=== PATIENT | male | born 1980 | race Caucasian/White ===

== ENCOUNTER 2023-08-23 15:13 | Outpatient (AMB) | payer BC, SELFPAY ==
[2023-08-23 15:50] VITALS: BP 148/70; PULSE 95; TEMP 36.6; O2SAT 95
--- NOTE | 2023-08-23 15:50 | AM.OFFWIN_ITS ---
Intake Vital Signs 08/23/23 15:50 Weight 324 lb 3 oz BP 148/70 H Blood Pressure Location Rt brachial Position Sitting Pulse 95 Pulse Source Pulse Oximeter Temp 98 F Temp Source Oral Pulse Oximetry (%) 95 Oxygen Delivery Method Room Air Intake Visit Reasons: EST/cough 2 months (lobby masked) Intake Note: Pt is here today for a cough that occurred for over 2 months Patient Tobacco Use Status: Never used Tobacco Allergies penicillin V Allergy (Unknown, Verified 08/23/23 15:52) Abdominal Pain Medication List - Last Reconciled 08/23/23 by Dory Lantigua NP azithromycin 500 mg PO DAILY 3 days benzonatate 200 mg (2 x 100 mg) PO TID Do you need a note to return to daycare/school/sports/work: No HPI HPI Comments History of Present Illness Details 43 y/o male presents to walk in clinic w ith c/o chronic persistent cough. Reports that the cough is on/off and productive in nature. Admits to smoking cigarettes, 1 PPD. Tried to quit with Chantix but failed. Denies fevers, chills, nausea or vomiting. PFSH Social History Patient Tobacco Use Status: Never used Tobacco Review of Systems Const All systems reviewed & are unremarkable except as noted in HPI and below Physical Exam Vital Signs: Last Vital Signs Temp 98 F 08/23/23 15:50 Pulse 95 08/23/23 15:50 BP 148/70 H 08/23/23 15:50 Pulse Ox 95 08/23/23 15:50 Oxygen Delivery Method Room Air 08/23/23 15:50 Const General: no acute distress HEENT Head: Yes normocephalic Ears: external ears normal and TM's normal bilaterally General nose exam: Normal external nose present and Normal nasal mucous membranes and turbinates present Face and sinus: Yes sinuses nontender Mouth: Abnormal oral and palatal mucosa present erythematous; not edematous, no white patches and nodules Throat: Yes posterior oropharynx normal Resp Effort & Inspection: normal respiratory effort Auscultation: clear to auscultation bilaterally Cardio Rate: regular rate Rhythm: regular rhythm Assessment & Plan Assessment & Plan (1) Cough in adult: Code(s): R05.9 - Cough, unspecified Plan: - Zpack - Advise to stop smoking - OTC cough medicine. Plan - Zpack - Advise to stop smoking - OTC cough medicine. Medications: New benzonatate 200 mg (2 x 100 mg) PO TID 60 caps 0RF R05.9 - Cough, unspecified azithromycin 500 mg PO DAILY 3 days 3 tabs 0RF R05.9 - Cough, unspecified dextromethorphan-guaifenesin 5-100 mg/5 mL (Robitussin Honey Max DM) 10 mL PO Q6-8H PRN 237 mL 0RF cough R05.9 - Cough, unspecified Coding Level of Care Code Est Pt Level 3 (97147) Diagnoses Cough in adult R05.9 Time Spent (min) 15
== END 2023-08-23 16:17 | disposition home or self-care (01) ==
PROVIDERS: Visit Provider Nurse Practitioner Family
DX: R05.9 Cough, unspecified (principal)
CPT/HCPCS: 99213

== ENCOUNTER 2023-10-03 15:27 | Outpatient (AMB) | payer BC, SELFPAY ==
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
[2023-10-03 15:38] VITALS: BP 120/76; PULSE 89; O2SAT 96; BMI 46.1
== END 2023-10-03 16:43 | disposition home or self-care (01) ==
PROVIDERS: Visit Provider Nurse Practitioner Primary Care
DX: M25.561 Pain in right knee (principal); J45.909 Unspecified asthma, uncomplicated; Z72.0 Tobacco use
CPT/HCPCS: 99213

== ENCOUNTER 2023-10-06 07:05 | Outpatient (REF) | payer BC, SELFPAY ==
[2023-10-06 11:47] LABS: MANUAL DIFF FLAG NO
[2023-10-06 11:57] LABS: Appearance Urine Cloudy; Color Urine Yellow; Glucose Urine UA Negative (Negative); Leukocyte Esterase Urine Negative (Negative); Nitrite Urine Negative (Negative); Specific Gravity - Urine >= 1.030 (1.005-1.025); Urine Blood Negative (Negative); Urine Ketones Negative (Negative); Urine Protein Negative (Neg-Trace)
[2023-10-06 11:59] LABS: Basophils Absolute Auto 0.1 X10*3/uL (0.0-0.2); Basophils Percent Auto 0.7 % (0-2); Eosinophils Absolute Auto 0.3 X10*3/uL (0.0-0.4); Eosinophils Percent Auto 4.5 % (0-4); Hematocrit 29.8 % (42.0-52.0); Hemoglobin 8.3 g/dl (14.0-18.0); Imm Gran Abs Auto 0.02 X10*3/uL (0.00-0.03); Imm Gran Pct Auto 0.3 % (0.0-0.4); Lymphocytes Percent Auto 26.6 % (20-40); Mean Corpuscular HGB Conc 27.9 g/dl (31.0-36.0); Mean Corpuscular Hemoglobin 20.9 pg (27.0-33.0); Mean Corpuscular Volume 74.9 fL (80.0-98.0); Mean Platelet Volume 11.2 fL (9.4-12.4); Monocytes Absolute Auto 0.5 X10*3/uL (0.1-1.2); Monocytes Percent Auto 6.9 % (2-11); Neutrophils Absolute Auto 4.6 x10*3/uL (2.0-8.3); Platelet Count 355 X10*3/uL (160-400); Red Blood Count 3.98 X10*6/uL (4.60-5.80); Red Cell Distribution Width 17.6 % (11.0-16.0); White Blood Count 7.6 X10*3/uL (4.8-10.8)
[2023-10-06 12:16] LABS: Estimated Average Glucose 111 mg/dL; Hemoglobin A1c % 5.5 % (<6.0)
[2023-10-06 12:33] LABS: Alanine Aminotransferase 20 U/L (0-40); Albumin Level 3.8 g/dL (3.5-5.0); Alkaline Phosphatase 66 U/L (39-117); Anion Gap 11 (12-20); Aspartate Amino Transferase 19 U/L (5-37); Bilirubin Total 0.1 mg/dL (0.0-1.0); Blood Urea Nitrogen 12 mg/dL (9-16); Calcium 9.3 mg/dL (8.4-10.2); Carbon Dioxide 24 mmol/L (22-29); Chloride 111 mmol/L (96-108); Cholesterol 165 mg/dL (<200); Estimated Glomerular Filt Rate > 60; Glucose Random 96 mg/dL (60-115); HDL Cholesterol 38 mg/dL (>40); LDL Cholesterol Calculated 115 mg/dL (<100); Potassium 4.3 mmol/L (3.3-5.1); Sodium 142 mmol/L (135-145); Total Protein 7.2 g/dL (6.5-8.0); Triglycerides 61 mg/dL (<150)
[2023-10-06 12:36] LABS: TSH reflex Free T4 1.79 uIU/mL (0.32-4.0)
[2023-10-06 12:37] LABS: PSA,Total (Free>4and<10) 0.44 ng/mL (0.00-4.00)
[2023-10-10 12:18] LABS: Vitamin D 25-OH, D2 <4 ng/mL; Vitamin D 25-OH, D3 20 ng/mL; Vitamin D 25-OH, Total 20 ng/mL (30-100)
[2023-10-10 14:38] LABS: Vitamin B6 3.6 ng/mL (2.1-21.7)
== END 2023-10-06 07:06 | disposition home or self-care (01) ==
LOC: HO.HMGCLDS 07:05
PROVIDERS: PCP Nurse Practitioner Primary Care; Visit Provider Nurse Practitioner Primary Care
DX: Z12.5 Encounter for screening for malignant neoplasm of prostate (principal); Z13.6 Encounter for screening for cardiovascular disorders; Z13.0 Encounter for screening for diseases of the blood and blood-forming organs and certain disorders involving the immune mechanism; Z13.21 Encounter for screening for nutritional disorder; Z13.220 Encounter for screening for lipoid disorders; Z13.89 Encounter for screening for other disorder; Z13.29 Encounter for screening for other suspected endocrine disorder; Z91.89 Other specified personal risk factors, not elsewhere classified
CPT/HCPCS: 36415; 80053; 80061; 81003; 82306; 83036; 84153; 84207; 84443; 85025

== ENCOUNTER 2023-10-12 13:08 | Outpatient (REF) | payer BC, SELFPAY ==
[2023-10-12 17:20] LABS: Iron 97 mcg/dL (45-160); Percent Iron Saturation 27 % (15-50); Total Iron Binding Capacity 361 mcg/dL (228-428); Unsaturated Iron Binding 264 ug/dL
== END 2023-10-12 13:09 | disposition home or self-care (01) ==
LOC: HO.HMGCLDS 13:08
PROVIDERS: PCP Nurse Practitioner Primary Care; Visit Provider Nurse Practitioner Primary Care
DX: D64.9 Anemia, unspecified (principal)
CPT/HCPCS: 36415; 83540

== ENCOUNTER 2023-11-01 14:43 | Outpatient (AMB) | payer BC, SELFPAY ==
[2023-11-01 14:47] VITALS: BP 126/72; PULSE 55; O2SAT 97; BMI 46.4
--- NOTE | 2023-11-01 14:47 | MHC.PC.OV ---
Vital Signs 11/01/23 14:47 Height 5 ft 9 in Weight 314 lb 8 oz BMI 46.4 BP 126/72 Blood Pressure Location Rt brachial Position Sitting Pulse 55 Pulse Source Pulse Oximeter Pulse Oximetry (%) 97 Oxygen Delivery Method Room Air Intake Visit Reasons: Chantix and Lab F/U Intake Note: Pt is here to follow up for labs and to follow up Chantix Allergies penicillin V Allergy (Unknown, Verified 11/01/23 14:49) Anaphylaxis Tobacco use date assessed: 10/03/23 Dental Screening Dental Screen Date: 11/01/23 Did you have a dental visit in the last 12 months?: Yes Did you have a dental problem in the last 6 months where you did not have access to dental care?: No Was dental information given to patient?: Patient has dentist HPI HPI Comments History of Present Illness Details Patient is a 43-year-old male here for a follow-up. Patient was started on Varenicline 1 month prior to assist with smoking cessation. Patient also had labs drawn which demonstrated anemia. Patient was given GI referral due to anemia and chronic nicotine use. He was started on ferrous fumarate 325 mg and has been taking the medication as directed. Patient denies any side effects from the Chantix and states that he has cut down smoking cigarettes dramatically. He denies symptoms of chest pain, shortness a breath, dizziness, numbness, nausea, vomiting, diarrhea. Will prescribe more Chantix, will redraw CMP CBC today stat. PFSH Surgical History History of carpal tunnel surgery Status post right foot surgery Hx of right knee surgery Family History Father Substance use disorder Mother No problems noted. Paternal Grandfather Prostate cancer Social History Housing: House Patient Tobacco Use Status: Current everyday Tobacco user Tobacco use type: Cigarette Cigarettes Per Day: 10 e-Cigarette/Vaping Use: Never Used Current occupational status: employed Cognitive needs: No Hearing needs: No Vision needs: Yes Questionnaire PHQ-9 Over the last 2 weeks, how often have you been bothered by any of the following problems? 1. Little interest or pleasure in doing things: several days 2. Feeling down, depressed, or hopeless: not at all 3. Trouble falling or staying asleep, or sleeping too much: not at all 4. Feeling tired or having little energy: not at all 5. Poor appetite or overeating: not at all 6. Feeling bad about yourself - or that you are a failure or have let yourself or your family down: not at all 7. Trouble concentrating on things, such as reading the newspaper or watching television: not at all 8. Moving or speaking so slowly that other people could have noticed. Or the opposite - being so fidgety or restless that you have been moving around a lot more than usual: not at all 9. Thoughts that you would be better off or of hurting yourself in some way: not at all Total score: 1 Source: Developed by Drs. Sd Nguyen, Kaila Tinajero, Beto Mcgregor and colleagues, with an educational nancy from [employer]. Thrive Questionnaire Date Thrive assessed: 11/01/23 I am a: Patient What is your living situation today?: I have a steady place to live Within the past 12 months, did the food you bought not last and you didn't have the money to get more?: Never true Within the past 12 months, did you worry whether your food would run out before you got money to buy more?: Never true Do you have trouble paying for medicines?: No Do you have trouble getting transportation to medical appointments?: No Do you have trouble paying your heating and electricity bill?: No Do you have trouble taking care of your child, family member or friend?: No Do you have trouble with day-to-day activities such as bathing, preparing meals, shopping, managing finances, etc.?: No Are you currently unemployed and looking for a job?: No Are you interested in more education?: No THRIVE Score: 0 AUDIT C Alcohol Use Questionnaire (AUDIT-C) 1. How often do you have a drink containing alcohol?: Monthly or less 2. How many drinks containing alcohol do you have on a typical day when you are drinking?: 3 or 4 3. How often do you have six or more drinks on one occasion?: Less than monthly Total Score: 3 SANAZ-7 AMB Questionnaire SANAZ-7 Date SANAZ - 7 assessed: 11/01/23 Feeling nervous, anxious, or on edge: 0 = Not at all Not being able to stop or control worryin = Not at all Worrying too much about different things: 0 = Not at all Trouble relaxin = Not at all Being so restless that it is hard to sit still: 0 = Not at all Becoming easily annoyed or irritable: 0 = Not at all Feeling afraid as if something awful might happen: 0 = Not at all Total SANAZ-7 score (0-4 normal; 5-9 mild; 10-14 moderate; 15-21 severe): 0 Source: Developed by Drs. Sd Nguyen, Kaila Tinajero, Beot Mcgregor and colleagues, with an educational nancy from [employer]. Review of Systems Const All systems reviewed & are unremarkable except as noted in HPI and below Psych Denies homicidal ideation and Denies suicidal ideation Physical exam (Primary Care) Care Plan Goal for BP management: Vital signs reviewed stable. BMI result Body Mass Index 46.4 Tobacco/Smoking Status: Tobacco use Status Tobacco use date assessed 10/03/23 10/03/23 15:45 Patient Tobacco Use Status Current everyday Tobacco 10/03/23 15:48 Tobacco use type Cigarette 10/03/23 15:45 e-Cigarette/Vaping Use Never Used 10/03/23 15:45 Const Other: Appearance: Alert.? Oriented X3.? No acute distress.? Head: Normocephalic, atraumatic, no step-offs or deformities Neck: Normal inspection.? Neck supple.? CVS: Normal heart rate and rhythm.? Pulses normal.? Respiratory: No respiratory distress.? Breath sounds normal.? Abdomen: Soft and nontender.? Skin: Normal for ethnicity. Neuro: Oriented X 3.? No motor deficit.? No sensory deficit. CN 2-12 intact Results Reviewed Results Reviewed: WBC 7.6 4.8-10.8 X10*3/uL RBC 3.98 L 4.60-5.80 X10*6/uL HGB 8.3 L 14.0-18.0 g/dl HCT 29.8 L 42.0-52.0 % MCV 74.9 L 80.0-98.0 fL MCH 20.9 L 27.0-33.0 pg MCHC 27.9 L 31.0-36.0 g/dl RDW 17.6 H 11.0-16.0 % PLT 355 160-400 X10*3/uL MPV 11.2 9.4-12.4 fL Neut Pct Auto 61.0 45-73 % ImGran Pct Auto 0.3 0.0-0.4 % Lymp Pct Auto 26.6 20-40 % [place] Pct Auto 6.9 2-11 % Eos Pct Auto 4.5 H 0-4 % Baso Pct Auto 0.7 0-2 % NRBC Pct Auto 0.0 0.0-0.2 /100WBC ANC Neut Abs # 4.6 2.0-8.3 x10*3/uL ImGran Abs Auto 0.02 0.00-0.03 X10*3/uL Lymph Abs Auto 2.0 1.2-4.9 X10*3/uL [place] Abs Auto 0.5 0.1-1.2 X10*3/uL Eos Abs Auto 0.3 0.0-0.4 X10*3/uL Baso Abs Auto 0.1 0.0-0.2 X10*3/uL NRBC Abs Auto 0.000 0.0-0.012 X10*3/uL Assessment and Plan Assessment & Plan (1) Anemia: Comment: Patient will have CBC and CMP redrawn today. Patient has been taking ferrous fumarate 325 daily. Patient has referral to GI. Code(s): D64.9 - Anemia, unspecified Qualifiers: Anemia type: unspecified type Qualified Code(s): D64.9 - Anemia, unspecified (2) Smoking trying to quit: Comment: Patient is currently taking Chantix with good effect. Patient will continue taking. Code(s): Z72.0 - Tobacco use Plan: Take your medications as prescribed. If you were prescribed antibiotics today, it is important that you take your medication to their entirety, do not skip any doses, do not finish them early. Follow-up with your primary care provider this week. Return to the emergency department with new or worsening symptoms. Such as fevers, chills, chest pain, shortness of breath, nausea, vomiting, dizziness, headache, vision changes, lethargy In case of emergency call 911 Plan Follow-up in 1 months with physical exam Orders: Orders Comprehensive Met. Panel Today Z91.89 - Other specified personal risk factors, not elsewhere classified UA CC w/rflx Micro + Cult Today D64.9 - Anemia, unspecified Complete Blood Count Auto Diff Today D64.9 - Anemia, unspecified Medications: New varenicline 1 mg PO BID 60 tabs 0RF Coding Level of Care Code Est Pt Level 3 (58965) Diagnoses Anemia, unspecified type D64.9 Anemia type: unspecified type Smoking trying to quit Z72.0 Time Spent (min) 20
== END 2023-11-01 16:27 | disposition home or self-care (01) ==
PROVIDERS: PCP Nurse Practitioner Primary Care; Visit Provider Nurse Practitioner Primary Care
DX: D64.9 Anemia, unspecified (principal); Z72.0 Tobacco use
CPT/HCPCS: 99213

== ENCOUNTER 2023-11-01 15:03 | Outpatient (REF) | payer BC, SELFPAY ==
[2023-11-01 16:25] LABS: MANUAL DIFF FLAG NO
[2023-11-01 16:38] LABS: Alanine Aminotransferase 24 U/L (0-40); Albumin Level 4.1 g/dL (3.5-5.0); Alkaline Phosphatase 66 U/L (39-117); Anion Gap 11 (12-20); Aspartate Amino Transferase 18 U/L (5-37); Bilirubin Total 0.1 mg/dL (0.0-1.0); Blood Urea Nitrogen 16 mg/dL (9-16); Calcium 9.5 mg/dL (8.4-10.2); Carbon Dioxide 26 mmol/L (22-29); Chloride 108 mmol/L (96-108); Estimated Glomerular Filt Rate > 60; Glucose Random 91 mg/dL (60-115); Potassium 4.2 mmol/L (3.3-5.1); Sodium 141 mmol/L (135-145); Total Protein 7.5 g/dL (6.5-8.0)
[2023-11-01 16:49] LABS: Basophils Absolute Auto 0.1 X10*3/uL (0.0-0.2); Basophils Percent Auto 0.8 % (0-2); Eosinophils Absolute Auto 0.3 X10*3/uL (0.0-0.4); Eosinophils Percent Auto 3.3 % (0-4); Hematocrit 32.8 % (42.0-52.0); Hemoglobin 9.6 g/dl (14.0-18.0); Imm Gran Abs Auto 0.03 X10*3/uL (0.00-0.03); Imm Gran Pct Auto 0.3 % (0.0-0.4); Lymphocytes Absolute Auto 2.2 X10*3/uL (1.2-4.9); Lymphocytes Percent Auto 23.3 % (20-40); Mean Corpuscular HGB Conc 29.3 g/dl (31.0-36.0); Mean Corpuscular Hemoglobin 22.3 pg (27.0-33.0); Mean Corpuscular Volume 76.3 fL (80.0-98.0); Mean Platelet Volume 11.2 fL (9.4-12.4); Monocytes Absolute Auto 0.7 X10*3/uL (0.1-1.2); Monocytes Percent Auto 7.2 % (2-11); Neutrophils Percent Auto 65.1 % (45-73); Platelet Count 314 X10*3/uL (160-400); Red Cell Distribution Width 24.3 % (11.0-16.0); White Blood Count 9.3 X10*3/uL (4.8-10.8)
== END 2023-11-01 15:04 | disposition home or self-care (01) ==
LOC: HO.HMGCLDS 15:03
PROVIDERS: PCP Nurse Practitioner Primary Care; Visit Provider Nurse Practitioner Primary Care
DX: D64.9 Anemia, unspecified (principal); Z91.89 Other specified personal risk factors, not elsewhere classified
CPT/HCPCS: 36415; 80053; 85025

== ENCOUNTER 2023-11-26 15:08 | Outpatient (AMB) | payer BC, SELFPAY ==
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
[2023-11-26 15:30] VITALS: BP 126/66; PULSE 70; O2SAT 95; BMI 46.2
== END 2023-11-26 16:06 | disposition home or self-care (01) ==
LOC: HO.HMGC 15:08
PROVIDERS: PCP Nurse Practitioner Primary Care; Visit Provider Nurse Practitioner Primary Care
DX: Z00.00 Encounter for general adult medical examination without abnormal findings (principal); D64.9 Anemia, unspecified; Z72.0 Tobacco use; J45.909 Unspecified asthma, uncomplicated; K21.9 Gastro-esophageal reflux disease without esophagitis; M25.561 Pain in right knee
CPT/HCPCS: 99396

== ENCOUNTER 2023-12-11 15:23 | Outpatient (AMB) | payer BC, SELFPAY ==
--- NOTE | 2023-12-11 15:26 | A.OFFVIS_ITS ---
Vital Signs 12/11/23 15:27 Height 5 ft 9 in Weight 313 lb 0.902 oz BMI 46.2 BP 128/70 Blood Pressure Location Lt brachial Position Sitting Pulse 70 Intake Visit Reasons: GERD, Anemia Intake Note: Aiden presents in the office as a new patient for GERD and Anemia. CC: He states that he takes omeprazole for the acid reflux - he said he is generally fine when he takes it but if he does not take it he will get acid reflux at night. He states that his bowels are fairly normal. Doctor Of Nursing Practice Required: No Allergies penicillin V Allergy (Unknown, Verified 12/11/23 15:29) Anaphylaxis HPI HPI GERD, Anemia: Details: 43 year old? male with past medical history of GERD, smoking, sleep apnea, anemia is here today for initial consultation.? Patient was sent to us by his PCP.? Patient was found to have anemia in the past few months. Last month patient was started on iron supplement and his H&H started to improve.? Patient denies any gastrointestinal symptoms in the past or at present. However patient does admit that he was having acid reflux was placed on omeprazole and is feeling well. Takes 20 mg omeprazole daily.? Denies any personal or family history of gastrointestinal disease, colon polyps, or CRC.? Denies history of difficulty with sedation or anesthesia in the past.? History of sleep apnea un able to use a CPAP..? Denies any history of cardiac, renal, pulmonary, or hepatic disease.?? No history of infectious? diseases like hepatitis A, B, C, HIV or tuberculosis.? Patient is not on any anticoagulation Laboratory Tests 04/05/19 10/06/23 10/12/23 11:08 07:17 13:10 RBC 4.70 3.98 L Hgb 14.2 8.3 L Hct 41.8 L 29.8 L MCV 89.0 74.9 L MCH 30.1 20.9 L Plt Count 224 355 MPV 11.2 Iron 97 TIBC 361 % Saturation 27 Unsat Iron Binding 264 Total Bilirubin AST ALT Alkaline Phosphatase 11/01/23 15:08 RBC 4.30 L Hgb 9.6 L Hct 32.8 L MCV 76.3 L MCH 22.3 L Plt Count 314 MPV 11.2 Iron TIBC % Saturation Unsat Iron Binding Total Bilirubin 0.1 AST 18 ALT 24 Alkaline Phosphatase 66 PFSH Surgical History History of carpal tunnel surgery Status post right foot surgery Hx of right knee surgery Family History Father Substance use disorder Mother No problems noted. Paternal Grandfather Prostate cancer Social History Housing: House Patient Tobacco Use Status: Current someday Tobacco user Tobacco use type: Cigarette Cigarettes Per Day: 10 e-Cigarette/Vaping Use: Never Used Current occupational status: employed Cognitive needs: No Hearing needs: No Vision needs: Yes Review of Systems Const Denies weight gain and Denies weight loss ENT Reports no additional complaints, Denies dysphagia and Denies odynophagia Card Reports no additional complaints Resp Reports no additional complaints GI Denies abdominal pain, Denies belching, Denies melena, Denies bloating, Denies change in bowel habits, Denies dysphagia, Denies excessive flatus, Denies dyspepsia, Denies heartburn, Denies diarrhea, Denies loose stools, Denies nausea, Denies odynophagia and Denies vomiting Reports no additional complaints Musc Reports no additional complaints Neuro Reports no additional complaints Psych Reports no additional complaints Endo Reports no additional complaints Physical Exam Vital Signs: Last Vital Signs Pulse 70 12/11/23 15:27 BP 128/70 12/11/23 15:27 BMI result Body Mass Index 46.2 Const General: healthy appearing and no acute distress Nutritional Appearance: obese Orientation/consciousness: patient oriented x3 Resp Effort & Inspection: normal respiratory effort, able to speak in complete sentences, no tracheal deviation and symmetric chest movement Auscultation: clear to auscultation bilaterally Cardio Rate: regular rate GI Inspection: Yes normal to inspection, No distended and Yes obesity Palpation (GI): Soft to palpation, not firm, nontender and No hepatosplenomegaly present Auscultation: normal bowel sounds General: Yes no CVA tenderness Back/Spine/Pelvis Back: no CVA tenderness Skin General skin exam: elasticity normal, turgor normal and dry skin Neuro General: patient oriented x3 Psych Appearance: grossly normal Mental Status: mental status grossly normal Assessment & Plan Assessment & Plan (1) GERD (gastroesophageal reflux disease): Code(s): K21.9 - Gastro-esophageal reflux disease without esophagitis Category: Medical Qualifiers: Esophagitis presence: esophagitis presence not specified Qualified Code(s): K21.9 - Gastro-esophageal reflux disease without esophagitis (2) Anemia: Code(s): D64.9 - Anemia, unspecified Category: Medical Qualifiers: Anemia type: unspecified type Qualified Code(s): D64.9 - Anemia, unspecified Plan Patient denies any GI, cardiac or respiratory symptoms.? Anemia in the past couple months. Patient denies any melena, hematochezia unintentional weight loss or ribbon like stools. Patient denies any dyspepsia, dysphagia or odynophagia. Denies any issues with anesthesia in the past.? History of sleep apnea unable to use a CPAP. No history infectious diseases in the past or present.? Not on any anticoagulation therapy.? No family or personal history of colon cancer or polyps.? Discussed at length the pre-procedure,? prep, diet & medications as well as what to expect prior, during and after the procedure.?? Stressed the importance of good bowel prep. ?Recommended the use of Vaseline or Calmoseptine OTC & baby wipes with bowel movements to promote comfort.? ?Patient verbalizes understanding and agrees to plan of care.? He was given the opp ortunity to ask questions and all questions answered.? We will see him after the procedure.? Orders: Referrals Hematology & Oncology Referral D64.9 - Anemia, unspecified Medications: New bisacodyl (Dulcolax (bisacodyl)) take 4 tabs at noon the day before your colonoscopy 20 mg (4 x 5 mg) PO ONCE 1 day 4 tabs 0RF Z12.11 - Encounter for screening for malignant neoplasm of colon polyethylene glycol 3350 (Miralax) As directed by gastroenterology department at [facility] 238 grams PO ONCE 238 grams 0RF Z12.11 - Encounter for screening for malignant neoplasm of colon Coding Level of Care Code New Pt Level 3 (77291) Diagnoses Gastroesophageal reflux disease, unspecified whether esophagitis present K21.9 Esophagitis presence: esophagitis presence not specified Anemia, unspecified type D64.9 Anemia type: unspecified type Time Spent (min) 40 Comment 30 minutes spent with patient and additional 10 minutes spent reviewing his records
[2023-12-11 15:27] VITALS: BP 128/70; PULSE 70; BMI 46.2
== END 2023-12-11 16:10 | disposition home or self-care (01) ==
PROVIDERS: PCP Nurse Practitioner Primary Care; Visit Provider Nurse Practitioner Family
DX: K21.9 Gastro-esophageal reflux disease without esophagitis (principal); D64.9 Anemia, unspecified
CPT/HCPCS: 99203

== ENCOUNTER → 2023-12-11 15:23 | Outpatient (BNVA) | payer BC, SELFPAY | PROVIDERS: PCP Nurse Practitioner Primary Care; Visit Provider Nurse Practitioner Family ==

== ENCOUNTER → 2023-12-25 13:51 | Outpatient (BNV) | payer BC, SELFPAY | PROVIDERS: PCP Nurse Practitioner Primary Care; Visit Provider Internal Medicine Medical Oncology | DX: D64.9 Anemia, unspecified (principal) | CPT/HCPCS: 99204; 99213 ==

== ENCOUNTER 2024-02-18 14:41 | Outpatient (AMB) | payer BC, SELFPAY ==
--- NOTE | 2024-02-18 14:50 | MHC.PC.OV ---
Vital Signs 02/18/24 14:52 Height 5 ft 9 in Weight 313 lb BMI 46.2 BP 126/76 Blood Pressure Location Rt brachial Position Sitting Pulse 76 Pulse Source Pulse Oximeter Pulse Oximetry (%) 98 Oxygen Delivery Method Room Air Intake Visit Reasons: 3 month follow up Intake Note: pt is here for 3 month followup Allergies penicillin V Allergy (Unknown, Verified 02/18/24 15:16) Anaphylaxis Medication List - Last Reconciled 02/18/24 by CRISTINA López albuterol sulfate 90 mcg/actuation 1 inh inhalation QID PRN azithromycin For 250 mg dose pack: take 500 mg today (day 1), then 250 mg for 4 days (days 2-5) PO bisacodyl (Dulcolax (bisacodyl)) 20 mg (4 x 5 mg) PO ONCE 1 day ferrous fumarate 324 mg PO DAILY meloxicam 15 mg PO DAILY omeprazole 20 mg PO DAILY polyethylene glycol 3350 (Miralax) 238 grams PO ONCE prednisone 50 mg PO DAILY varenicline 1 mg PO BID Tobacco use date assessed: 02/18/24 Dental Screening Dental Screen Date: 11/26/23 HPI HPI Comments History of Present Illness Details Patient is a 43-year-old male in today for a sick visit. Patient reports that over the past 3 weeks he has developed symptoms of cough, headache, sinus pain, ear fullness, sore throat. Patient states that the symptoms have been persistent and have not improved with [id number]-[id number] medication. Denies fever chills, denies shortness of breast or chest pain, denies nausea, vomiting, diarrhea. Patient has establish care with Gastroenterology and has upcoming colonoscopy and endoscopy. Has also establish care with Hematology due to anemia. He is scheduled for redraw in 2 months, patient has been utilizing ferrous fumarate. Denies dizziness or lethargy. He is currently utilizing Chantix with good effect. States he is currently down to about 3-4 cigarettes per day. [facility] Surgical History History of carpal tunnel surgery Status post right foot surgery Hx of right knee surgery Family History Father Substance use disorder Mother No problems noted. Paternal Grandfather Prostate cancer Social History Household Members: Significant Other Housing: House Patient Tobacco Use Status: Current someday Tobacco user Tobacco use type: Cigarette e-Cigarette/Vaping Use: Never Used service: No Current occupational status: employed Cognitive needs: No Hearing needs: No Vision needs: Yes Questionnaire PHQ-9 Over the last 2 weeks, how often have you been bothered by any of the following problems? 1. Little interest or pleasure in doing things: not at all 2. Feeling down, depressed, or hopeless: not at all 3. Trouble falling or staying asleep, or sleeping too much: not at all 4. Feeling tired or having little energy: not at all 5. Poor appetite or overeating: not at all 6. Feeling bad about yourself - or that you are a failure or have let yourself or your family down: not at all 7. Trouble concentrating on things, such as reading the newspaper or watching television: not at all 8. Moving or speaking so slowly that other people could have noticed. Or the opposite - being so fidgety or restless that you have been moving around a lot more than usual: not at all 9. Thoughts that you would be better off or of hurting yourself in some way: not at all Total score: 0 Depression Screening Interpretation: Negative Depression Screening Done: Yes 37040 - PHQ-9 Billing: Yes Source: Developed by Drs. Sd Nguyen, Kaila Tinajero, Beto Mcgregor and colleagues, with an educational nancy from [employer]. Thrive Questionnaire Date Thrive assessed: 02/18/24 I am a: Patient What is your living situation today?: I have a steady place to live Within the past 12 months, did the food you bought not last and you didn't have the money to get more?: Never true Within the past 12 months, did you worry whether your food would run out before you got money to buy more?: Never true Do you have trouble paying for medicines?: No Do you have trouble getting transportation to medical appointments?: No Do you have trouble paying your heating and electricity bill?: No Do you have trouble taking care of your child, family member or friend?: No Do you have trouble with day-to-day activities such as bathing, preparing meals, shopping, managing finances, etc.?: No Are you currently unemployed and looking for a job?: No Are you interested in more education?: No Please select the resources that you would like help with: Housing/Fpc Currently or been in a relationship where the following occur: No concerns reported THRIVE Score: 0 AUDIT C Alcohol Use Questionnaire (AUDIT-C) 1. How often do you have a drink containing alcohol?: Monthly or less 2. How many drinks containing alcohol do you have on a typical day when you are drinking?: 3 or 4 3. How often do you have six or more drinks on one occasion?: Less than monthly Total Score: 3 Score Reviewed/Action Taken: Yes SANAZ-7 AMB Questionnaire SANAZ-7 Date SANAZ - 7 assessed: 02/18/24 Feeling nervous, anxious, or on edge: 0 = Not at all Not being able to stop or control worryin = Not at all Worrying too much about different things: 0 = Not at all Trouble relaxin = Not at all Being so restless that it is hard to sit still: 0 = Not at all Becoming easily annoyed or irritable: 0 = Not at all Feeling afraid as if something awful might happen: 0 = Not at all Total SANAZ-7 score (0-4 normal; 5-9 mild; 10-14 moderate; 15-21 severe): 0 Source: Developed by Drs. Sd Nguyen, Kaila Tinajero, Beto Mcgregor and colleagues, with an educational nancy from [employer]. SANAZ-7 Assessment Billing SANAZ-7 Assessment Tool: SANAZ-7 Assessment 20983 Review of Systems Const All systems reviewed & are unremarkable except as noted in HPI and below Physical exam (Primary Care) Vital Signs: Last Vital Signs Pulse 76 02/18/24 14:52 BP 126/76 02/18/24 14:52 Pulse Ox 98 02/18/24 14:52 Oxygen Delivery Method Room Air 02/18/24 14:52 BMI result Body Mass Index 46.2 Tobacco/Smoking Status: Tobacco use Status Tobacco use date assessed 02/18/24 02/18/24 14:52 Patient Tobacco Use Status Current someday Tobacco 02/18/24 14:52 Tobacco use type Cigarette 02/18/24 14:52 e-Cigarette/Vaping Use Never Used 02/18/24 14:52 PHQ-9: PHQ-9 Score PHQ-9: Total score 0 02/18/24 14:52 Depression Screening Interpretation: Negative Thrive Assessment: Date of Thrive Assessment Date Thrive assessed 02/18/24 02/18/24 14:52 Currently or been in a relationship where the following occur: No concerns reported Const Other: Appearance: Alert.? Oriented X3.? No acute distress.? Head: Normocephalic, atraumatic, no step-offs or deformities Eyes: Pupils equal, round and reactive to light.? ENT: Pharynx erythema. TM intact and pearly yee. + Sinus tenderness. Neck: Normal inspection.? Neck supple.? CVS: Normal heart rate and rhythm.? Pulses normal.? Respiratory: No respiratory distress.? Breath sounds normal.? Neuro: Oriented X 3.? No motor deficit.? No sensory deficit. CN 2-12 intact Assessment and Plan Assessment & Plan (1) Anemia: Comment: Patient being followed by both Gastroenterology and Hematology Oncology. Patient currently utilizing 325 ferrous fumarate. Code(s): D64.9 - Anemia, unspecified Qualifiers: Anemia type: unspecified type Qualified Code(s): D64.9 - Anemia, unspecified (2) Upper respiratory infection: Comment: Patient has upper respiratory infection also likely sinusitis. Will give patient azithromycin and prednisone to be taken as prescribed. Patient has been educated on the signs of worsening symptoms when to report back to the office or when to present to the ED. Code(s): J06.9 - Acute upper respiratory infection, unspecified Qualifiers: URI type: unspecified URI Qualified Code(s): J06.9 - Acute upper respiratory infection, unspecified (3) Smoking trying to quit: Comment: Patient is currently taking Chantix with good effect. Patient will continue medication. Patient denies SI/HI. Code(s): Z72.0 - Tobacco use (4) GERD (gastroesophageal reflux disease): Comment: Utilizing omeprazole p.r.n. with good effect Code(s): K21.9 - Gastro-esophageal reflux disease without esophagitis Qualifiers: Esophagitis presence: esophagitis presence not specified Qualified Code(s): K21.9 - Gastro-esophageal reflux disease without esophagitis Medications: New azithromycin For 250 mg dose pack: take 500 mg today (day 1), then 250 mg for 4 days (days 2-5) PO 6 tabs 0RF albuterol sulfate 90 mcg/actuation 1 inh inhalation QID PRN 6.7 grams 0RF shortness of breath or wheezing prednisone 50 mg PO DAILY 5 tabs 0RF Coding Level of Care Code Est Pt Level 3 (08571) Diagnoses Anemia, unspecified type D64.9 Anemia type: unspecified type Upper respiratory tract infection, unspecified type J06.9 URI type: unspecified URI Smoking trying to quit Z72.0 Gastroesophageal reflux disease, unspecified whether esophagitis present K21.9 Esophagitis presence: esophagitis presence not specified Additional Codes SANAZ-7 Assessment Billing - SANAZ-7 Assessment Tool: SANAZ-7 Assessment 93641 ([id number]) Time Spent (min) 26
[2024-02-18 14:52] VITALS: BP 126/76; PULSE 76; O2SAT 98; BMI 46.2
== END 2024-02-18 15:19 | disposition home or self-care (01) ==
PROVIDERS: PCP Nurse Practitioner Primary Care; Visit Provider Nurse Practitioner Primary Care
DX: D64.9 Anemia, unspecified (principal); J06.9 Acute upper respiratory infection, unspecified; Z72.0 Tobacco use; K21.9 Gastro-esophageal reflux disease without esophagitis
CPT/HCPCS: 99213

== ENCOUNTER 2024-04-16 09:28 | Day surgery (SDC) | payer BC, SELFPAY ==
--- NOTE | 2024-04-14 14:42 | P.CONAN_ITS ---
Documented by User: Ainsley Pozo NP 04/14/24 14:42 HPI - Anesthesia Eval Consult details Narrative: 43yo M for Upper Endoscopy and Colonoscopy PMF Active Problems Active Problems: All Active Problems Upper respiratory infection (Acute) Encounter for routine adult physical exam with abnormal findings (Acute) Anemia (Acute) Smoking trying to quit (Acute) Reactive airway disease (Acute) Knee pain (Acute) GERD (gastroesophageal reflux disease) (Acute) Past Medical History Medical History Reactive airway disease GERD (gastroesophageal reflux disease) Family History Family History Father Substance use disorder Mother No problems noted. Paternal Grandfather Prostate cancer Surgical History Surgical History History of carpal tunnel surgery Status post right foot surgery Hx of right knee surgery Social History Social History Household Members: Significant Other Housing: House Patient Tobacco Use Status: Current everyday Tobacco user Tobacco use type: Cigarette Cigarettes Per Day: 8 e-Cigarette/Vaping Use: Never Used Second Hand Smoke Exposure: No Use of substances other than those prescribed or required for medical reasons: No Have you been hit, kicked, punched, or otherwise hurt by someone within the past year? If so, by whom?: No Advance Directives: No Advance Directives Information Provided: Yes Recently lost weight without trying: No Nutrition Risks: No Nutritional Risk Poor oral hygiene: No service: No Current occupational status: employed Cognitive needs: No Hearing needs: No Vision needs: Yes Meds Allergies Allergy/AdvReac Type Severity Reaction Status Date / Time penicillin V Allergy Unknown Anaphylaxis Verified 04/16/24 10:35 Home Medications ?Medication ?Instructions ?Recorded ?Confirmed ?Last Taken ?Type omeprazole 20 mg capsule,delayed 20 mg PO DAILY 10/03/23 04/16/24 04/09/24 History release Assessment and Plan Assessment Anesthesia Assessment: Chart Reviewed Documented by User: Yasir Weiner MD 04/16/24 11:03 [facility] Past Medical History Medical History Reactive airway disease GERD (gastroesophageal reflux disease) Narrative: IVY doesnt wear CPAP. Family History Family History Father Substance use disorder Mother No problems noted. Paternal Grandfather Prostate cancer Family history of problems with anesthesia: No Surgical History Surgical History History of carpal tunnel surgery Status post right foot surgery Hx of right knee surgery History of Problems with Anesthesia: No Social History Social History Household Members: Significant Other Housing: House Patient Tobacco Use Status: Current everyday Tobacco user Tobacco use type: Cigarette Cigarettes Per Day: 8 e-Cigarette/Vaping Use: Never Used Second Hand Smoke Exposure: No Use of substances other than those prescribed or required for medical reasons: No Have you been hit, kicked, punched, or otherwise hurt by someone within the past year? If so, by whom?: No Advance Directives: No Advance Directives Information Provided: Yes Recently lost weight without trying: No Nutrition Risks: No Nutritional Risk Poor oral hygiene: No service: No Current occupational status: employed Cognitive needs: No Hearing needs: No Vision needs: Yes Meds Allergies Allergy/AdvReac Type Severity Reaction Status Date / Time penicillin V Allergy Unknown Anaphylaxis Verified 04/16/24 10:35 Home Medications ?Medication ?Instructions ?Recorded ?Confirmed ?Last Taken ?Type omeprazole 20 mg capsule,delayed 20 mg PO DAILY 10/03/23 04/16/24 04/09/24 History release Exam Airway Mallampati Class: I TM Dist: <=3cm Neck ROM: Full Loose/Missing/Broken Teeth: No Heart: ok Lungs: ok, SpO2 95% room air. Assessment and Plan Assessment Anesthesia Assessment: Anesthesia Plan Discussed Final Anesthetic Review Family History of Problems with Anesthesia: No History of Problems with Anesthesia: No NPO: Yes ASA Class: III Final Preanesthetic Review: No Changes in Pt Med Stat, Meds/Allgs Chart Reviewed, Consent Obtained/Reviewed and Anes Risks/Benef Reviewed Patient Risk: Intermediate Procedure Risk: Intermediate Anesthetic Plan Anesthetic Plan: Agree w/ Assess. and Plan and TIVA Disposition: Standard PACU
[2024-04-14 15:35] VITALS: BMI 46.2
[2024-04-16 10:34] VITALS: BMI 45.5
[2024-04-16 10:43] VITALS: BP 146/95; PULSE 80; RESP 16; TEMP 36.2; O2SAT 95
[2024-04-16] MEDS: Lactated Ringers 1,000 ML 100 ML IVCONT (10:45)
--- NOTE | 2024-04-16 10:48 | MHC.SHP ---
Pre-Procedural Eval Section A - 24 Hr Update-Section A only Date of Service: 04/16/24 Section B - Complete if H&P > 30 days Chief Complaint: anemia,gerd, Relevant Family History (Specify if Yes): No Relevant Social History: Tobacco Use Present Medications: see Short Stay Collaborative assessment Medical History: Significant History (gerd, anemia ) History of Previous Operations: Relevant previous surgery/procedure and date(s) (History of carpal tunnel surgery Status post right foot surgery Hx of right knee surgery) Allergies: Allergies Allergy/AdvReac Type Severity Reaction Status Date / Time penicillin V Allergy Unknown Anaphylaxis Verified 04/16/24 10:35 Review of Systems Sugical H&P ROS: Negative: Constitution, Cardiovascular, Respiratory, Neurological, Psychiatric, Hem-Onc, Allergic/Immunologic, Gastrointestinal, Genitourinary, Musculoskeletal, Integumentary, Endocrine and Eyes/Ears/Nose/Throat Exam Surgical H&P Exam: Normal: HEENT, Normal: Heart, Normal: Lungs, Normal: Extremities, Normal: Abdomen, Normal: Skin and Normal: Neurological Plan Diagnosis/Plan: Unchanged I have reviewed the history and physical and performed a pertinent physical examination on my patient. No changes have occurred unless specified. Time Spent With Patient Time: Total time managing care of this patient today ____ minutes.
--- NOTE | 2024-04-16 11:36 | HO.OPN-COLON ---
Colonoscopy Operative Note Operative Note Date of Service: 04/16/24 Narrative: Operative Information Procedure Description: EGD, Colonoscopy Indication: anemia Anesthesia: MAC FLEXIBLE TRANSORAL UPPER GASTROINTESTINAL ENDOSCOPY AND COLONOSCOPY PROCEDURE NOTE UPPER ENDOSCOPY Consent: Indications for the procedure and potential complications of bleeding, perforation, reaction to medications and missed diagnosis were discussed with the patient and informed consent was obtained. Instrument: Olympus GIF H 190 J mid size upper endoscope Monitoring: Vital signs and clinical assessment, continuous EKG monitoring, Pulse oximetry, Carbon Dioxide monitoring and blood pressure monitoring were done throughout the procedure. Procedure: The patient was placed in the left lateral decubitis position and pre-procedure medications were administered and a bite block was placed. The endoscope was inserted into the mouth and advanced under direct vision to the third part of duodenum. A careful inspection was made as the upper endoscope was withdrawn including a retroflexed examination of the proximal stomach; Findings and interventions are described below. Findings: Larynx:normal Esophagus: GE junction at 39 cm, diaphragm hiatus at 44 cm, mild esophagitis, 5 cm para esophageal hernia noted Stomach: scattered erosions in mid upper body of stomach. Biopsies were obtained. Grade 2 flap valve on retroflexed examination of the cardia. Duodenum: mild bulbar duodenitis, bx taken Intervention: Biopsies as noted above, COLONOSCOPY Instrument: Olympus variable stiffness pediatric scope 190L Colonoscopy Monitoring: Vital signs and clinical assessment, continuous EKG monitoring, Pulse oximetry, Carbon Dioxide monitoring and blood pressure monitoring were done throughout the procedure. Colon withdrawal time was 10 minutes. Procedure: The patient was placed in the left lateral decubitis position and pre-procedure medications were administered. After a digital rectal examination of the ano-rectum, the video colonoscope was inserted into the rectum and advanced through the colon to the cecum/TI. The colonoscope was slowly withdrawn in a retrograde panoramic fashion and the colon mucosa was carefully examined including a retroflexed view of the rectum. Findings and interventions are described below. Procedure Difficulty:moderate Findings: Terminal Ileum-normal Cecum:normal Ascending Colon: normal Transverse Colon -normal Descending Colon:normal Sigmoid Colon: moderate diverticulosis, x2 sessile polyps 5-8 mm removed with cold snare Rectum: Retroflexion with small internal hemorrhoids, grade I Anorectum - normal Colon preparation: [place] Bowel Preparation Scale Right colon; 2 Transverse colon: 2 Left colon; 2 (0 = Unprepared colon segment with mucosa not seen due to solid stool that cannot be cleared. 1 = Portion of mucosa of the colon segment seen, but other areas of the colon segment not well seen due to staining, residual stool and/or opaque liquid. 2 = Minor amount of residual staining, small fragments of stool and/or opaque liquid, but mucosa of colon segment seen well. 3 = Entire mucosa of colon segment seen well with no residual staining, small fragments of stool or opaque liquid) Impression and Post Procedure Diagnosis: Endoscopy Findings: hiatal hernia erosive gastritis duodenitis mild esophagitis Colonoscopy Findings: diverticulosis colon polyps internal hemorrhoids Plan: Await Pathology results Repeat Colonoscopy in 5 years if adenomatous polyps, 10 yrs if hyperplastic or earlier if clinically indicated High fiber diet leaflet avoid straining at stool, epsom salts and sitz bath, anusol supps or cream if h pylori pos then treat recommend referral for hernia repair Above findings were reviewed with the patient and relevant handouts were provided if indicated.
[2024-04-16 11:42] VITALS: BP 111/62; PULSE 80; RESP 20; TEMP 36.1; O2SAT 93
[2024-04-16 11:57] VITALS: BP 101/66; PULSE 79; RESP 16; TEMP 36.1; O2SAT 97
== END 2024-04-16 12:24 | disposition home or self-care (01) ==
PROVIDERS: PCP Nurse Practitioner Primary Care; Visit Provider Internal Medicine Gastroenterology
PROC: (CPT 45385; principal; 2024-04-16 11:40)
DX: D64.9 Anemia, unspecified (principal); K63.5 Polyp of colon; K57.30 Diverticulosis of large intestine without perforation or abscess without bleeding; K64.0 First degree hemorrhoids; K21.9 Gastro-esophageal reflux disease without esophagitis; K29.80 Duodenitis without bleeding; K20.80 Other esophagitis without bleeding; K44.9 Diaphragmatic hernia without obstruction or gangrene; G47.30 Sleep apnea, unspecified; Z79.899 Other long term (current) drug therapy; Z88.0 Allergy status to penicillin; Z98.890 Other specified postprocedural states; F17.210 Nicotine dependence, cigarettes, uncomplicated
CPT/HCPCS: 45385; 43239; 88305; 88307; 88342; J2704

== ENCOUNTER → 2024-04-16 09:28 | Outpatient (BNV) | payer BC, SELFPAY | PROVIDERS: PCP Nurse Practitioner Primary Care; Visit Provider Internal Medicine Gastroenterology | DX: D64.9 Anemia, unspecified (principal); K20.90 Esophagitis, unspecified without bleeding; K29.80 Duodenitis without bleeding; K29.70 Gastritis, unspecified, without bleeding; K63.5 Polyp of colon; K64.0 First degree hemorrhoids; K57.30 Diverticulosis of large intestine without perforation or abscess without bleeding | CPT/HCPCS: 43239; 45385 ==

== ENCOUNTER 2024-04-28 15:20 | Outpatient (AMB) | payer BC, SELFPAY ==
[2024-04-28 15:22] VITALS: BP 116/70; PULSE 84; O2SAT 96; BMI 47.4
--- NOTE | 2024-04-28 15:22 | MHC.OFFVIS ---
Vital Signs 04/28/24 15:22 Height 5 ft 9 in Weight 320 lb 15.889 oz BMI 47.4 BP 116/70 Blood Pressure Location Rt brachial Position Sitting Pulse 84 Pulse Source Pulse Oximeter Pulse Oximetry (%) 96 Oxygen Delivery Method Room Air Intake Visit Reasons: s/p egd/colon Intake Note: Aiden presents in office today for a scheduled s/p FUV. CC; Pt had a double procedure. Pt reports that he has been doing well since the procedure, pt denies any complications, new sx or concerns post op. Pt states that he has decreased the amount he has been taking omeprazole. Pt has only had to take it once on a PRN basis since the procedure. Pt has been doing OK otherwise. Branch Customer Service Representative Required: No Allergies penicillin V Allergy (Unknown, Verified 04/28/24 15:23) Anaphylaxis HPI HPI s/p egd/colon: Details: LAST VISIT GERD (gastroesophageal reflux disease) Anemia Plan Patient denies any GI, cardiac or respiratory symptoms.? Anemia in the past couple months. Patient denies any melena, hematochezia unintentional weight loss or ribbon like stools. Patient denies any dyspepsia, dysphagia or odynophagia. Denies any issues with anesthesia in the past.? History of sleep apnea unable to use a CPAP. No history infectious diseases in the past or present.? Not on any anticoagulation therapy.? No family or personal history of colon cancer or polyps.? Discussed at length the pre-procedure,? prep, diet & medications as well as what to expect prior, during and after the procedure.?? Stressed the importance of good bowel prep. ?Recommended the use of Vaseline or Calmoseptine OTC & baby wipes with bowel movements to promote comfort.? ?Patient verbalizes understanding and agrees to plan of care.? He was given the opportunity to ask questions and all questions answered.? We will see him after the procedure.? Orders Referrals Hematology & Oncology Referral D64.9 Medications New bisacodyl (Dulcolax (bisacodyl)) take 4 tabs at noon the day before your colonoscopy 20 mg (4 x 5 mg) PO ONCE 1 day 4 tabs 0RF Z12.11 polyethylene glycol 3350 (Miralax) As directed by gastroenterology department at [facility] 238 grams PO ONCE 238 grams 0RF Z12.11 UPPER ENDOSCOPY AND COLONOSCOPY Upper endoscopy Findings: Larynx:normal Esophagus: GE junction at 39 cm, diaphragm hiatus at 44 cm, mild esophagitis, 5 cm para esophageal hernia noted Stomach: scattered erosions in mid upper body of stomach. Biopsies were obtained. Grade 2 flap valve on retroflexed examination of the cardia. Duodenum: mild bulbar duodenitis, bx taken Intervention: Biopsies as noted above, Colonoscopy Findings: Terminal Ileum-normal Cecum:normal Ascending Colon: normal Transverse Colon -normal Descending Colon:normal Sigmoid Colon: moderate diverticulosis, x2 sessile polyps 5-8 mm removed with cold snare Rectum: Retroflexion with small internal hemorrhoids, grade I Anorectum - normal Colon preparation: [place] Bowel Preparation Scale Right colon; 2 Transverse colon: 2 Left colon; 2 (0 = Unprepared colon segment with mucosa not seen due to solid stool that cannot be cleared. 1 = Portion of mucosa of the colon segment seen, but other areas of the colon segment not well seen due to staining, residual stool and/or opaque liquid. 2 = Minor amount of residual staining, small fragments of stool and/or opaque liquid, but mucosa of colon segment seen well. 3 = Entire mucosa of colon segment seen well with no residual staining, small fragments of stool or opaque liquid) Impression and Post Procedure Diagnosis: Endoscopy Findings: hiatal hernia erosive gastritis duodenitis mild esophagitis Colonoscopy Findings: diverticulosis colon polyps internal hemorrhoids Plan: Await Pathology results Repeat Colonoscopy in 5 years if adenomatous polyps, 10 yrs if hyperplastic or earlier if clinically indicated High fiber diet leaflet avoid straining at stool, epsom salts and sitz bath, anusol supps or cream if h pylori pos then treat recommend referral for hernia repair PATHOLOGY RESULTS Addendum #1 Immunostain for H. pylori on B is negative. Control stains appropriately. Electronically Signed By: Edna Moses 04/18/24 0910 Diagnosis A. Duodenum, biopsy: Duodenal mucosa with predominantly preserved villi and mild features of chronic/non-specific duodenitis. B. Stomach, biopsy: Gastric body mucosa with congestion and focal minimal chronic inactive inflammation; negative for intestinal metaplasia and dysplasia. C. Colon, sigmoid, polyps: Hyperplastic polyps. Comment: (B): Immunostain for H. pylori pending; addendum to follow TODAY'S VISIT Patient is here today for follow-up and to discuss upper endoscopy and colonoscopy results. Patient reports no ill effects from the prep, anesthesia or procedure itself patient reports to be feeling well. No longer is using any PPI. Upper endoscopy and colonoscopy results as well as biopsy results discussed with patient. Hyperplastic polyp found on colonoscopy and colonoscopy was recommended to be repeated in 10 years. Patient denies any melena, hematochezia. Denies any dyspepsia, dysphagia or odynophagia. Patient denies any GI concerning symptoms today. [facility] Medical History Reactive airway disease GERD (gastroesophageal reflux disease) Surgical History History of carpal tunnel surgery Status post right foot surgery Hx of right knee surgery Family History Father Substance use disorder Mother No problems noted. Paternal Grandfather Prostate cancer Social History Household Members: Significant Other Housing: House Patient Tobacco Use Status: Current everyday Tobacco user Tobacco use type: Cigarette Cigarettes Per Day: 8 e-Cigarette/Vaping Use: Never Used Second Hand Smoke Exposure: No service: No Current occupational status: employed Cognitive needs: No Hearing needs: No Vision needs: Yes Review of Systems Const Denies weight gain and Denies weight loss ENT Reports no additional complaints, Denies dysphagia and Denies odynophagia Card Reports no additional complaints Resp Reports no additional complaints GI Denies abdominal pain, Denies belching, Denies melena, Denies bloating, Denies change in bowel habits, Denies dysphagia, Denies excessive flatus, Denies dyspepsia, Denies heartburn, Denies diarrhea, Denies loose stools, Denies nausea, Denies odynophagia and Denies vomiting Reports no additional complaints Musc Reports no additional complaints Neuro Reports no additional complaints Psych Reports no additional complaints Endo Reports no additional complaints Physical Exam Vital Signs: Last Vital Signs Pulse 84 04/28/24 15:22 BP 116/70 04/28/24 15:22 Pulse Ox 96 04/28/24 15:22 Oxygen Delivery Method Room Air 04/28/24 15:22 BMI result Body Mass Index 47.4 Const General: healthy appearing and no acute distress Nutritional Appearance: obese Orientation/consciousness: patient oriented x3 Resp Effort & Inspection: normal respiratory effort, able to speak in complete sentences, no tracheal deviation and symmetric chest movement Auscultation: clear to auscultation bilaterally Cardio Rate: regular rate GI Inspection: Yes normal to inspection, No distended and Yes obesity Palpation (GI): Soft to palpation, not firm, nontender and No hepatosplenomegaly present Auscultation: normal bowel sounds General: Yes no CVA tenderness Back/Spine/Pelvis Back: no CVA tenderness Skin General skin exam: elasticity normal, turgor normal and dry skin Neuro General: patient oriented x3 Psych Appearance: grossly normal Mental Status: mental status grossly normal Assessment & Plan Assessment & Plan (1) GERD (gastroesophageal reflux disease): Comment: Utilizing omeprazole p.r.n. with good effect Code(s): K21.9 - Gastro-esophageal reflux disease without esophagitis Category: Medical Qualifiers: Esophagitis presence: esophagitis presence not specified Qualified Code(s): K21.9 - Gastro-esophageal reflux disease without esophagitis (2) Status post colonoscopy: Code(s): Z98.890 - Other specified postprocedural states Plan Colonoscopy in 10 years, sooner if clinically necessary. May take famotidine as needed. Avoid dietary triggers and late night snacking. Staying upright for minimum 3 hours after meals discussed with patient. Follow-up on as needed basis. Patient is agreeable to this plan and verbalizes understanding of instructions. He was given the opportunity to ask questions and all questions answered. Thank you for allowing me to participate in his care Orders: Orders Complete Blood Count no Diff 04/28/24 K21.9 - Gastro-esophageal reflux disease without esophagitis Medications: New famotidine (Pepcid) 20 mg PO BID 30 tabs 3RF K29.70 - Gastritis, unspecified, without bleeding Coding Level of Care Code Est Pt Level 3 (97374) Diagnoses Gastroesophageal reflux disease, unspecified whether esophagitis present K21.9 Esophagitis presence: esophagitis presence not specified Status post colonoscopy Z98.890 Time Spent (min) 25 Comment 15 minutes spent with patient and additional 10 minutes spent reviewing his records
== END 2024-04-28 15:54 | disposition home or self-care (01) ==
PROVIDERS: PCP Nurse Practitioner Primary Care; Visit Provider Nurse Practitioner Family
DX: K21.9 Gastro-esophageal reflux disease without esophagitis (principal); Z98.890 Other specified postprocedural states
CPT/HCPCS: 99213

== ENCOUNTER 2024-04-28 15:20 | Outpatient (REF) | payer BC, SELFPAY ==
[2024-04-28 16:21] LABS: MANUAL DIFF FLAG NO
[2024-04-28 16:27] LABS: Basophils Absolute Auto 0.1 X10*3/uL (0.0-0.2); Basophils Percent Auto 0.8 % (0-2); Eosinophils Absolute Auto 0.2 X10*3/uL (0.0-0.4); Eosinophils Percent Auto 1.8 % (0-4); Hematocrit 39.2 % (42.0-52.0); Hemoglobin 12.5 g/dl (14.0-18.0); Imm Gran Abs Auto 0.04 X10*3/uL (0.00-0.03); Imm Gran Pct Auto 0.4 % (0.0-0.4); Lymphocytes Absolute Auto 2.4 X10*3/uL (1.2-4.9); Lymphocytes Percent Auto 23.7 % (20-40); Mean Corpuscular HGB Conc 31.9 g/dl (31.0-36.0); Mean Corpuscular Hemoglobin 26.9 pg (27.0-33.0); Mean Corpuscular Volume 84.5 fL (80.0-98.0); Mean Platelet Volume 11.7 fL (9.4-12.4); Monocytes Absolute Auto 0.8 X10*3/uL (0.1-1.2); Neutrophils Absolute Auto 6.5 x10*3/uL (2.0-8.3); Neutrophils Percent Auto 65.3 % (45-73); Platelet Count 252 X10*3/uL (160-400); Red Blood Count 4.64 X10*6/uL (4.60-5.80); Red Cell Distribution Width 15.2 % (11.0-16.0)
[2024-04-29 07:32] LABS: Appearance Urine Clear; Color Urine Yellow; Glucose Urine UA Negative (Negative); Leukocyte Esterase Urine Negative (Negative); Nitrite Urine Negative (Negative); PH 5.5 (5.0-9.0); Specific Gravity - Urine >= 1.030 (1.005-1.025); Urine Blood Negative (Negative); Urine Ketones Negative (Negative); Urine Protein Negative (Neg-Trace)
== END 2024-04-28 15:21 | disposition home or self-care (01) ==
LOC: HO.LAB 15:20
PROVIDERS: PCP Nurse Practitioner Primary Care; Visit Provider Nurse Practitioner Family
DX: K21.9 Gastro-esophageal reflux disease without esophagitis (principal); Z13.0 Encounter for screening for diseases of the blood and blood-forming organs and certain disorders involving the immune mechanism; D64.9 Anemia, unspecified
CPT/HCPCS: 36415; 81003; 85025; 85027

== ENCOUNTER 2024-11-26 12:19 | Outpatient (AMB) | payer BC, SELFPAY ==
[2024-11-26 12:23] VITALS: BP 122/66; PULSE 86; RESP 20; TEMP 36.7; O2SAT 95; BMI 45.0
--- NOTE | 2024-11-26 12:23 | MHC.PC.OV ---
Vital Signs 11/26/24 12:23 Height 5 ft 9 in Weight 305 lb BMI 45.0 BP 122/66 Blood Pressure Location Lt brachial Position Sitting Respiration 20 Pulse 86 Pulse Source Pulse Oximeter Temp 98.0 F Temp Source Oral Pulse Oximetry (%) 95 Oxygen Delivery Method Room Air Intake Visit Reasons: Transfer from [facility]/Requesting PE Intake Note: Pt is here today for a PE transfer from [facility]. Allergies penicillin V Allergy (Unknown, Verified 11/26/24 12:59) Anaphylaxis Medication List - Last Reconciled 11/26/24 by DAKOTA Frank albuterol sulfate 90 mcg/actuation 1 inh inhalation QID PRN ferrous fumarate 324 mg PO DAILY meloxicam 15 mg PO DAILY PRN omeprazole 20 mg PO DAILY PRN Tobacco use date assessed: 11/26/24 Dental Screening Dental Screen Date: 11/26/24 Did you have a dental visit in the last 12 months?: Yes Did you have a dental problem in the last 6 months where you did not have access to dental care?: No Was dental information given to patient?: Patient has dentist [facility] Medical History Reactive airway disease GERD (gastroesophageal reflux disease) Surgical History History of carpal tunnel surgery Status post right foot surgery Hx of right knee surgery Family History Father Substance use disorder Mother No problems noted. Paternal Grandfather Prostate cancer Social History Household Members: Significant Other Housing: House Patient Tobacco Use Status: Current everyday Tobacco user Tobacco use type: Cigarette Cigarettes Per Day: 8 e-Cigarette/Vaping Use: Never Used Second Hand Smoke Exposure: No service: No Current occupational status: employed Cognitive needs: No Hearing needs: No Vision needs: Yes Questionnaire PHQ-9 Over the last 2 weeks, how often have you been bothered by any of the following problems? 1. Little interest or pleasure in doing things: not at all 2. Feeling down, depressed, or hopeless: not at all 3. Trouble falling or staying asleep, or sleeping too much: not at all 4. Feeling tired or having little energy: not at all 5. Poor appetite or overeating: not at all 6. Feeling bad about yourself - or that you are a failure or have let yourself or your family down: not at all 7. Trouble concentrating on things, such as reading the newspaper or watching television: not at all 8. Moving or speaking so slowly that other people could have noticed. Or the opposite - being so fidgety or restless that you have been moving around a lot more than usual: not at all 9. Thoughts that you would be better off or of hurting yourself in some way: not at all Total score: 0 Depression Screening Interpretation: Negative Depression Screening Done: Yes 74066 - PHQ-9 Billing: Yes Source: Developed by Drs. Sd Nguyen, Kaila Tinajero, Beto Mcgregor and colleagues, with an educational nancy from [employer]. Thrive Questionnaire Date Thrive assessed: 11/26/24 I am a: Patient What is your living situation today?: I have a steady place to live Within the past 12 months, did the food you bought not last and you didn't have the money to get more?: Never true Within the past 12 months, did you worry whether your food would run out before you got money to buy more?: Never true Do you have trouble paying for medicines?: No Do you have trouble getting transportation to medical appointments?: No Do you have trouble paying your heating and electricity bill?: No Do you have trouble taking care of your child, family member or friend?: No Do you have trouble with day-to-day activities such as bathing, preparing meals, shopping, managing finances, etc.?: No Are you currently unemployed and looking for a job?: No Are you interested in more education?: No Please select the resources that you would like help with: None Currently or been in a relationship where the following occur: No concerns reported THRIVE Score: 0 AUDIT C Alcohol Use Questionnaire (AUDIT-C) 1. How often do you have a drink containing alcohol?: Monthly or less 2. How many drinks containing alcohol do you have on a typical day when you are drinking?: 3 or 4 3. How often do you have six or more drinks on one occasion?: Less than monthly Total Score: 3 Score Reviewed/Action Taken: Yes SANAZ-7 AMB Questionnaire SANAZ-7 Date SANAZ - 7 assessed: 11/26/24 Feeling nervous, anxious, or on edge: 0 = Not at all Not being able to stop or control worryin = Not at all Worrying too much about different things: 0 = Not at all Trouble relaxin = Not at all Being so restless that it is hard to sit still: 0 = Not at all Becoming easily annoyed or irritable: 0 = Not at all Feeling afraid as if something awful might happen: 0 = Not at all Total SANAZ-7 score (0-4 normal; 5-9 mild; 10-14 moderate; 15-21 severe): 0 Source: Developed by Drs. Sd Nguyen, Kaila Tinajero, Beto Mcgregor and colleagues, with an educational nancy from [employer]. SANAZ-7 Assessment Billing SANAZ-7 Assessment Tool: SANAZ-7 Assessment 29132 Physical exam (Primary Care) Vital Signs: Last Vital Signs Temp 98.0 F 11/26/24 12:23 Pulse 86 11/26/24 12:23 Resp 20 11/26/24 12:23 BP 122/66 11/26/24 12:23 Pulse Ox 95 11/26/24 12:23 Oxygen Delivery Method Room Air 11/26/24 12:23 BMI result Body Mass Index 45.0 Tobacco/Smoking Status: Tobacco use Status Tobacco use date assessed 11/26/24 11/26/24 12:28 Patient Tobacco Use Status Current everyday Tobacco 11/26/24 12:28 Tobacco use type Cigarette 11/26/24 12:28 e-Cigarette/Vaping Use Never Used 11/26/24 12:28 PHQ-9: PHQ-9 Score PHQ-9: Total score 0 11/26/24 12:28 Depression Screening Interpretation: Negative Thrive Assessment: Date of Thrive Assessment Date Thrive assessed 11/26/24 11/26/24 12:28 Currently or been in a relationship where the following occur: No concerns reported Coding Level of Care Code New Pt Prev Care 40-64y(26588) Diagnoses Physical exam Z00.00 Screening for colon cancer Z12.11 Additional Codes SANAZ-7 Assessment Billing - SANAZ-7 Assessment Tool: SANAZ-7 Assessment 12382 ([id number]) PHQ-9 - 45229 - PHQ-9 Billing: Yes ([id number]) Assessment & Plan Assessment & Plan (1) Physical exam: Code(s): Z00.00 - Encounter for general adult medical examination without abnormal findings Category: Medical (2) Screening for colon cancer: Code(s): Z12.11 - Encounter for screening for malignant neoplasm of colon Category: Medical Plan . Orders: Orders Comprehensive [place]. Panel Fast Today Z00.00 - Encounter for general adult medical examination without abnormal findings TSH reflex Free T4 Today Z00.00 - Encounter for general adult medical examination without abnormal findings UA CC w/rflx Micro + Cult Today Z00.00 - Encounter for general adult medical examination without abnormal findings Complete Blood Count Auto Diff Today Z00.00 - Encounter for general adult medical examination without abnormal findings Lipid Panel Today Z00.00 - Encounter for general adult medical examination without abnormal findings Medications: New tirzepatide (weight loss) (Zepbound) for 4 weeks 2.5 mg (0.5 mL) subcut QWEEK 2 mL 0RF Discontinued varenicline tartrate Discontinued Reason: Doctor's Order 1 mg PO BID 180 tabs 1RF
--- OUTSIDE RECORDS SUMMARY | 2024-11-26 14:34 | XMS_ITS ---
Author Name [facility] Organization Unknown Problems Problem Status Onset Date Problem Type Date of Resoluti on Source Acute right-sided low back pain without sciatica active EncounterDiagnosisAct CCT Encounters Encounter Type Encounter Reason Primary Diagnosis Location Date Ambulatory Low back pain, unspecified Low back pain, unspecified [facility] 06/19/2023 Care Team Organization Name Specialty Phone Email Start Date End Da te [facility] 08/26/2023 [facility] YONI URBANO Primary Care 06/19/202310/22 [facility] YONI URBANO Primary Care 06/19/202306/19 [facility] SHY YAO Primary Care 06/19/202306/19
--- OUTSIDE RECORDS SUMMARY | 2024-11-26 14:34 | XMS_ITS | Clinical Summary ---
Author Organization [facility] Address [address] [place] [address] Care Team Providers Care Patient Account Liaison Name Role Phone Kalpesh Zhang MD Primary Care Provider [phone]- [phone] Allergies Active Allergy Reactions Criticality Noted Date Comments Penicillins Hives Medium 06/19/2023 Medications OMEprazole (PriLOSEC) 20 MG capsule Take 20 mg by mouth every morning before breakfast. Active methocarbamol (ROBAXIN) 750 MG tabletIndicatio ns:Acute right-sided low back pain without sciatica Take 1 tablet (750 mg total) by mouth nightly as needed for muscle spasms. 10 tablet 06/19/2023 Active ibuprofen (MOTRIN) 600 MG tabletIndicatio ns:Acute right-sided low back pain without sciatica Take 1 tablet (600 mg total) by mouth 4 times daily (every 6 hours) as needed for mild pain or moderate pain. 30 tablet 06/19/2023 Active Social History Tobacco Use Types Packs/Day Years Used Date Smoking Tobacco: Every Day Cigarettes 0.5 25 Smokeless Tobacco: Never Tobacco Cessation:Ready to Q uit: No; Counseling Given: Yes Alcohol Use Standard Drinks/Week Comments Not Asked 0 (1 standard drink = 0.6 oz pur e alcohol) socially Sex and Gender Information Value Date Recorded Sex Assigned at Not on file Legal Sex Male 10:42 AM EST Gender Identity Not on file Sexual Orientation Not on file Last Filed Vital Signs Vital Sign Reading Time Taken Comments Blood Pressure 138/88 06/19/2023 11:16 AM EST Pulse 84 06/19/2023 11:16 AM EST Temperature 36.7 ??C (98 ??F) 06/19/2023 11:16 AM EST Respiratory Rate 16 06/19/2023 11:16 AM EST Oxygen Saturation 97% 06/19/2023 11:16 AM EST Inhaled Oxygen Concentration - - Weight 132 kg (290 lb) 06/19/2023 11:16 AM EST Height 175.3 cm (5' 9 ) 06/19/2023 11:16 AM EST Body Mass Index 42.83 06/19/2023 11:16 AM EST Plan of Treatment Health Maintenance Due Date Last Done Comments Hepatitis C Virus Screening 1980 HIV Screening 1993 DTaP/Tdap/Td Vaccines (1 - Tdap) 1999 Hepatitis B Vaccines (1 of 3 - 19+ 3-dose series) 1999 Pneumococcal Vaccine: Pediat maria m (0-5 Years) and At-Risk Patients (6 to 49 Years) (1 of 2 - PCV) 1999 Influenza Vaccine 03/06/2024 COVID-19 Vaccine ( - 2023-2 5 season) 2024 HPV Vaccines Aged Out No longer eligi ble based on patient's age to complete this topic Insurance [facility] PPO Member Subscriber Plan / Payer (Ef fective 2022-Present) Name:Aiden Moore Member ID:[id number] Relation to Subscriber:Self Name:Aiden Moore Subscriber ID:[id number] Payer ID:[id number] (NA) Type:Not on file Address: [address] [address] Care Teams Patient Account Liaison Relationship Specialty Start Date End Date Kalpesh Zhang MD [address] [place] [address] [place] [address] PCP - General Internal Medicine 06/19/23
== END 2024-11-26 13:24 | disposition home or self-care (01) ==
LOC: HO.HMCC 12:20
PROVIDERS: PCP Nurse Practitioner Primary Care; Visit Provider Nurse Practitioner Family
DX: Z00.00 Encounter for general adult medical examination without abnormal findings (principal); Z12.11 Encounter for screening for malignant neoplasm of colon

== ENCOUNTER → 2024-11-26 12:19 | Outpatient (BNVA) | payer BC, SELFPAY | PROVIDERS: PCP Nurse Practitioner Primary Care; Visit Provider Nurse Practitioner Family | DX: Z00.00 Encounter for general adult medical examination without abnormal findings (principal); E66.01 Morbid (severe) obesity due to excess calories; Z68.42 Body mass index [BMI] 45.0-49.9, adult | CPT/HCPCS: 96127 ==

== ENCOUNTER 2024-11-27 06:06 | Outpatient (REF) | payer BC, SELFPAY ==
--- OUTSIDE RECORDS SUMMARY | 2024-11-27 06:09 | XMS_ITS | Clinical Summary ---
Author Organization [facility] Address [address] [place] [address] Care Team Providers Care Product Assembler Name Role Phone Kalpesh Zhang MD Primary Care Provider [phone]- [phone] Allergies Active Allergy Reactions Criticality Noted Date [...] patient's age to complete this topic Insurance [facility] PPO Care Teams Product Assembler Relationship Specialty Start Date End Date Kalpesh Zhang MD [address] [place] [address] [place] [id number] PCP - General Internal Medicine 06/19/23
[2024-11-27 10:32] LABS: MANUAL DIFF FLAG NO
[2024-11-27 10:45] LABS: Basophils Absolute Auto 0.1 X10*3/uL (0.0-0.2); Eosinophils Absolute Auto 0.1 X10*3/uL (0.0-0.4); Eosinophils Percent Auto 2.3 % (0-4); Hematocrit 42.1 % (42.0-52.0); Hemoglobin 13.5 g/dl (14.0-18.0); Imm Gran Abs Auto 0.02 X10*3/uL (0.00-0.03); Imm Gran Pct Auto 0.3 % (0.0-0.4); Lymphocytes Absolute Auto 1.5 X10*3/uL (1.2-4.9); Lymphocytes Percent Auto 24.7 % (20-40); Mean Corpuscular HGB Conc 32.1 g/dl (31.0-36.0); Mean Corpuscular Hemoglobin 28.2 pg (27.0-33.0); Mean Corpuscular Volume 87.9 fL (80.0-98.0); Mean Platelet Volume 12.2 fL (9.4-12.4); Monocytes Absolute Auto 0.5 X10*3/uL (0.1-1.2); Monocytes Percent Auto 8.1 % (2-11); Neutrophils Absolute Auto 3.8 x10*3/uL (2.0-8.3); Neutrophils Percent Auto 63.6 % (45-73); Platelet Count 237 X10*3/uL (160-400); Red Blood Count 4.79 X10*6/uL (4.60-5.80); Red Cell Distribution Width 14.6 % (11.0-16.0)
[2024-11-27 11:12] LABS: Albumin Level 4.1 g/dL (3.5-5.0); Alkaline Phosphatase 61 U/L (39-117); Anion Gap 10 (12-20); Aspartate Amino Transferase 31 U/L (5-37); Bilirubin Total 0.3 mg/dL (0.0-1.0); Blood Urea Nitrogen 14 mg/dL (9-16); Calcium 9.7 mg/dL (8.4-10.2); Carbon Dioxide 26 mmol/L (22-29); Chloride 108 mmol/L (96-108); Cholesterol 161 mg/dL (<200); Estimated Glomerular Filt Rate > 60; Glucose Fasting 100 mg/dL (60-99); HDL Cholesterol 39 mg/dL (>40); LDL Cholesterol Calculated 110 mg/dL (<100); Potassium 4.1 mmol/L (3.3-5.1); Sodium 140 mmol/L (135-145); Total Protein 7.4 g/dL (6.5-8.0); Triglycerides 62 mg/dL (<150)
[2024-11-27 11:22] LABS: Appearance Urine Turbid; Color Urine Yellow; Glucose Urine UA Negative (Negative); Leukocyte Esterase Urine Negative (Negative); Nitrite Urine Negative (Negative); Specific Gravity - Urine >= 1.030 (1.005-1.025); Urine Blood Negative (Negative); Urine Ketones Negative (Negative); Urine Protein Negative (Neg-Trace)
[2024-11-27 11:30] LABS: Alanine Aminotransferase 33 U/L (0-40); TSH reflex Free T4 1.43 uIU/mL (0.32-4.0)
== END 2024-11-27 06:07 | disposition home or self-care (01) ==
LOC: HO.HMGCLDS 06:06
PROVIDERS: PCP Nurse Practitioner Family; Visit Provider Nurse Practitioner Family
DX: Z00.00 Encounter for general adult medical examination without abnormal findings (principal)
CPT/HCPCS: 36415; 80053; 80061; 81003; 84443; 85025

== ENCOUNTER 2025-02-17 06:02 | Outpatient (REF) | payer BC, SELFPAY ==
--- OUTSIDE RECORDS SUMMARY | 2025-02-17 06:04 | XMS_ITS ---
Author Name [facility] Organization Unknown Allergies Allergen Reaction Severity Comment Documented Date Source Statu s PENICILLINS HIVES 06/19/2023 CCT active Problems Problem Status Onset Date Problem Type Date of Resoluti on Source Acute right-sided low back pain without sciatica active EncounterDiagnosisAct CCT Encounters Encounter Type Encounter Reason Primary Diagnosis Location Date Ambulatory Low back pain, unspecified Low back pain, unspecified [facility] 06/19/2023 Care Team Organization Name Specialty Phone Email Start Date End Da te [facility] 08/26/2023 [facility] YONI URBANO Primary Care 06/19/202310/22 [facility] YONI URBANO Primary Care 06/19/202306/19 [facility] SHY YAO Primary Care 06/19/202306/19
[2025-02-19 11:58] LABS: Rubeola IgG (Measles) 142.00 AU/mL
== END 2025-02-17 06:03 | disposition home or self-care (01) ==
LOC: HO.HMGCLDS 06:02
PROVIDERS: PCP Nurse Practitioner Family; Visit Provider Nurse Practitioner Family
DX: Z28.39 Other underimmunization status (principal)
CPT/HCPCS: 36415; 86735; 86762; 86765

== ENCOUNTER 2025-06-08 15:18 | Outpatient (AMB) | payer BC, SELFPAY ==
[2025-06-08 15:40] VITALS: BP 110/64; PULSE 73; RESP 16; O2SAT 96; BMI 42.4
--- NOTE | 2025-06-08 15:40 | A.OFFPC_ITS ---
Vital Signs 06/08/25 15:40 Height 5 ft 9 in Weight 287 lb BMI 42.4 BP 110/64 Blood Pressure Location Lt brachial Position Sitting Respiration 16 Pulse 73 Pulse Source Pulse Oximeter Pulse Oximetry (%) 96 Oxygen Delivery Method Room Air Intake Visit Reasons: 6 months f/up Entry Manager Required: No Accompanied by: Self / Same As Patient Allergies penicillin V Allergy (Unknown, Verified 06/08/25 15:41) Anaphylaxis Medication List - Last Reconciled 06/08/25 by CONNIE FrankPScottie meloxicam 15 mg PO DAILY PRN Tobacco use date assessed: 06/08/25 Dental Screening Dental Screen Date: 06/08/25 Did you have a dental visit in the last 12 months?: Yes Did you have a dental problem in the last 6 months where you did not have access to dental care?: No Was dental information given to patient?: Patient has dentist HPI 6 months f/up HPI Details Chief Complaint The patient presents for a follow-up visit regarding morbid obesity. History of Present Illness The patient is a 44-year-old male presenting for a follow-up on morbid obesity. He has a history of GERD and reports his acid reflux is much better since stopping his PPI and watching his diet more closely. The patient has been cutting down his smoking significantly. He was on Chantix at one time for smoking cessation but is no longer using it. Social History - Diet: The patient is monitoring his di et more closely for weight loss and to manage GERD. - Substance Use: He has significantly re duced his smoking. - He previously used Chantix for smoking cessation but is no longer taking it. Health Maintenance - Weight Management: Proper diet for marci ght loss was reinforced. - Smoking Cessation: The patient is acti vely cutting down on smoking. Review of Systems - Gastrointestinal: Reports improvement in acid reflux. Physical Exam General: Cooperative, healthy appearing, comfortable, no acute distress and well developed, morbidly obese Orientation: Patient oriented x3 Limitations: No limitations Head: Normal to inspection Ears: Hearing grossly normal bilaterally Nose: Normal external nose present Face and sinus: Normal facial exam Eyes: Appearance normal, both eyes and all related structures Neck: Normal visual inspection and Yes full ROM Respiratory: Normal respiratory effort and able to speak in complete sentences. Clear to auscultation bilaterally Cardiovascular: Regular rate and rhythm. Normal S1 and S2 GI: Normal to inspection. Soft to palpation and nontender Skin: No rashes or lesions noted Neuro: Patient oriented x3 Extremities: Normal to inspection, no edema Results Plan 1. Morbid Obesity The patient is doing well and is being encouraged to continue a proper diet for weight loss. Basic labs will be ordered. 2. Gastroesophageal Reflux Disease The patient's acid reflux has improved significantly since he stopped his PPI and implemented dietary modifications. He will continue to manage symptoms with diet. 3. Tobacco Use The patient has significantly reduced his smoking and will be encouraged to continue his cessation efforts. Discussion Notes I reviewed the patient's progress with his morbid obesity, GERD, and smoking re duction efforts. I reinforced the importance of adhering to a proper diet for continued weight loss and informed him that I will be ordering basic labs. Overall, he is doing quite well. Patient Instructions - Continue to watch your diet to help wi th weight loss. - Your acid reflux is better with diet c hanges, so you do not need to restart your medication at this time. - Continue your efforts to cut down on s moking. - Please go to the lab to have some bloo d tests done. [facility] Medical History Morbid obesity Reactive airway disease GERD (gastroesophageal reflux disease) Surgical History History of carpal tunnel surgery Status post right foot surgery Hx of right knee surgery Family History Father Substance use disorder Mother No problems noted. Paternal Grandfather Prostate cancer Social History Household Members: Significant Other Housing: House Patient Tobacco Use Status: Current everyday Tobacco user Tobacco use type: Cigarette Cigarettes Per Day: 8 e-Cigarette/Vaping Use: Never Used Second Hand Smoke Exposure: No service: No Current occupational status: employed Cognitive needs: No Hearing needs: No Vision needs: Yes Questionnaire PHQ-9 Over the last 2 weeks, how often have you been bothered by any of the following problems? 1. Little interest or pleasure in doing things: not at all 2. Feeling down, depressed, or hopeless: not at all 3. Trouble falling or staying asleep, or sleeping too much: not at all 4. Feeling tired or having little energy: not at all 5. Poor appetite or overeating: not at all 6. Feeling bad about yourself - or that you are a failure or have let yourself or your family down: not at all 7. Trouble concentrating on things, such as reading the newspaper or watching television: not at all 8. Moving or speaking so slowly that other people could have noticed. Or the opposite - being so fidgety or restless that you have been moving around a lot more than usual: not at all 9. Thoughts that you would be better off or of hurting yourself in some way: not at all Total score: 0 Depression Screening Interpretation: Negative Depression Screening Done: Yes 13487 - PHQ-9 Billing: Yes Source: Developed by Drs. Sd Nguyen, Kaila Tinajero, Beto Mcgregor and colleagues, with an educational nancy from [employer]. Thrive Questionnaire Date Thrive assessed: 11/23/24 I am a: Patient What is your living situation today?: I have a steady place to live Within the past 12 months, did the food you bought not last and you didn't have the money to get more?: Never true Within the past 12 months, did you worry whether your food would run out before you got money to buy more?: Never true Do you have trouble paying for medicines?: No Do you have trouble getting transportation to medical appointments?: No Do you have trouble paying your heating and electricity bill?: No Do you have trouble taking care of your child, family member or friend?: No Do you have trouble with day-to-day activities such as bathing, preparing meals, shopping, managing finances, etc.?: No Are you currently unemployed and looking for a job?: No Are you interested in more education?: No Please select the resources that you would like help with: None Currently or been in a relationship where the following occur: No concerns reported THRIVE Score: 0 SANAZ-7 AMB Questionnaire SANAZ-7 Date SANAZ - 7 assessed: 06/08/25 Feeling nervous, anxious, or on edge: 0 = Not at all Not being able to stop or control worryin = Not at all Worrying too much about different things: 0 = Not at all Trouble relaxin = Not at all Being so restless that it is hard to sit still: 0 = Not at all Becoming easily annoyed or irritable: 0 = Not at all Feeling afraid as if something awful might happen: 0 = Not at all Total SANAZ-7 score (0-4 normal; 5-9 mild; 10-14 moderate; 15-21 severe): 0 Source: Developed by Drs. Sd Nguyen, Kaila Tinajero, Beto Mcgregor and colleagues, with an educational nancy from [employer]. SANAZ-7 Assessment Billing SANAZ-7 Assessment Tool: SANAZ-7 Assessment 55616 Physical exam (Primary Care) Vital Signs: Last Vital Signs Pulse 73 06/08/25 15:40 Resp 16 06/08/25 15:40 BP 110/64 06/08/25 15:40 Pulse Ox 96 06/08/25 15:40 Oxygen Delivery Method Room Air 06/08/25 15:40 BMI result Body Mass Index 42.4 Tobacco/Smoking Status: Tobacco use Status Tobacco use date assessed 06/08/25 06/08/25 15:42 Patient Tobacco Use Status Current everyday Tobacco 06/08/25 15:42 Tobacco use type Cigarette 06/08/25 15:42 e-Cigarette/Vaping Use Never Used 06/08/25 15:42 PHQ-9: PHQ-9 Score PHQ-9: Total score 0 06/08/25 15:42 Depression Screening Interpretation: Negative Thrive Assessment: Date of Thrive Assessment Date Thrive assessed 11/23/24 06/08/25 15:42 Currently or been in a relationship where the following occur: No concerns reported Coding Level of Care Code Est Pt Level 3 (60340) Diagnoses Gastroesophageal reflux disease, unspecified whether esophagitis present K21.9 Esophagitis presence: esophagitis presence not specified Morbid obesity E66.01 Additional Codes SANAZ-7 Assessment Billing - SANAZ-7 Assessment Tool: SANAZ-7 Assessment 50111 ([id number]) PHQ-9 - 06864 - PHQ-9 Billing: Yes ([id number]) Assessment & Plan Assessment & Plan (1) GERD (gastroesophageal reflux disease): Code(s): K21.9 - Gastro-esophageal reflux disease without esophagitis Category: Medical Qualifiers: Esophagitis presence: esophagitis presence not specified Qualified Code(s): K21.9 - Gastro-esophageal reflux disease without esophagitis (2) Morbid obesity: Code(s): E66.01 - Morbid (severe) obesity due to excess calories Category: Medical Plan . Orders: Orders UA CC w/rflx Micro + Cult Today E66.01 - Morbid (severe) obesity due to excess calories, K21.9 - Gastro-esophageal reflux disease without esophagitis Complete Blood Count Auto Diff Today E66.01 - Morbid (severe) obesity due to excess calories, K21.9 - Gastro-esophageal reflux disease without esophagitis Comprehensive [place]. Panel Fast Today E66.01 - Morbid (severe) obesity due to excess calories, K21.9 - Gastro-esophageal reflux disease without esophagitis TSH reflex Free T4 Today E66.01 - Morbid (severe) obesity due to excess calories, K21.9 - Gastro-esophageal reflux disease without esophagitis Lipid Panel Today E66.01 - Morbid (severe) obesity due to excess calories, K21.9 - Gastro-esophageal reflux disease without esophagitis Prostate Specific Antigen Scr Today E66.01 - Morbid (severe) obesity due to excess calories, K21.9 - Gastro-esophageal reflux disease without esophagitis
--- OUTSIDE RECORDS SUMMARY | 2025-06-08 16:35 | XMS_ITS | Clinical Summary ---
Author Organization [facility] Address [address] [place] [address] Care Team Providers Care Executive Vp Name Role Phone Kalpesh Zhang MD Primary Care Provider +1- [phone] Allergies Active Allergy Reactions Criticality Noted Date [...] 84 06/19/2023 11:16 AM EST Temperature 36.7 C (98 F) 06/19/2023 11:16 AM EST Respiratory Rate 16 [...] (1 of 3 - 19+ 3-dose series) 03/1999 Pneumococcal Vaccine: Pediat maria m (0-5 Years) and At-Risk Patients (6 to 49 Years) (1 of 2 - PCV) 1999 Influenza Vaccine 03/06/2025 COVID-19 Vaccine (1 - 2023- season) 2025 HPV Vaccines (No Doses Required) Completed Insurance [facility] PPO Care Teams Executive Vp Relationship Specialty Start Date End Date Kalpesh Zhang MD [address] [place] [address] [place] [id number] PCP - General Internal Medicine 06/19/23
== END 2025-06-08 16:20 | disposition home or self-care (01) ==
LOC: HO.HMCC 15:18
PROVIDERS: PCP Nurse Practitioner Family; Visit Provider Nurse Practitioner Family
DX: K21.9 Gastro-esophageal reflux disease without esophagitis (principal); E66.01 Morbid (severe) obesity due to excess calories; Z68.41 Body mass index [BMI] 40.0-44.9, adult; Z23 Encounter for immunization

== ENCOUNTER → 2025-06-08 15:18 | Outpatient (BNVA) | payer BC, SELFPAY | PROVIDERS: PCP Nurse Practitioner Family; Visit Provider Nurse Practitioner Family | DX: K21.9 Gastro-esophageal reflux disease without esophagitis (principal); E66.01 Morbid (severe) obesity due to excess calories; F17.210 Nicotine dependence, cigarettes, uncomplicated; Z23 Encounter for immunization; Z68.41 Body mass index [BMI] 40.0-44.9, adult | CPT/HCPCS: 90471; 90656; 96127 ==